=== PATIENT | female | born 1945 | race Two or more races ===

== ENCOUNTER 2017-09-29 14:31 | Emergency (ER) | payer OTHER ==
[~2017-09-29] VITALS: Ht 152.4 cm; Wt 33.6 kg
== END 2017-09-30 07:48 | disposition home or self-care (01) ==
LOC: ER 14:31
DX: D50.0 Iron deficiency anemia secondary to blood loss (chronic) (principal); R42 Dizziness and giddiness; K62.5 Hemorrhage of anus and rectum

== ENCOUNTER → 2017-10-05 | Emergency (ER) | payer OTHER ==
[~2017-10-05] VITALS: Ht 149.9 cm; Wt 33.6 kg
[~2017-10-05] MED LIST: FOSAMAX70 MG; IMODIUM A-D2 M2 PO; IRON325 MG PO; MEGACE ES625 MG/5 M PO; PEPCID40 MG PO; ZOFRAN4 MG PO
== END | disposition home or self-care (01) ==
LOC: ER 17:18
DX: R10.84 Generalized abdominal pain (principal); R11.2 Nausea with vomiting, unspecified

== ENCOUNTER 2018-04-11 06:20 | Day surgery (SDC) | payer OTHER | END 2018-04-11 11:30 | disposition home or self-care (01) | LOC: AMB-ENDOS 06:20 | DX: K55.21 Angiodysplasia of colon with hemorrhage (principal) ==

== ENCOUNTER 2018-05-10 16:55 | Emergency (ER) | payer OTHER ==
[~2018-05-10] VITALS: Ht 149.9 cm; Wt 34.0 kg
[2018-05-10] MEDS ORDERED: GAS RELIEF80 MG (17:20)
== END 2018-05-10 20:28 | disposition home or self-care (01) ==
LOC: ER 16:55
DX: D64.89 Other specified anemias (principal); R42 Dizziness and giddiness; R53.1 Weakness

== ENCOUNTER 2018-08-03 09:41 | Emergency (ER) | payer OTHER ==
[~2018-08-03] VITALS: Ht 152.4 cm; Wt 40.8 kg
[~2018-08-03 09:41] MED LIST changes: +GAS RELIEF80 MG
== END 2018-08-03 11:43 | disposition home or self-care (01) ==
LOC: ER 09:41
DX: S61.452A Open bite of left hand, initial encounter (principal); L03.114 Cellulitis of left upper limb; W54.0XXA Bitten by dog, initial encounter; Y93.89 Activity, other specified; Y92.018 Other place in single-family (private) house as the place of occurrence of the external cause; Y99.8 Other external cause status

== ENCOUNTER → 2018-10-11 | Emergency (ER) | payer OTHER ==
[~2018-10-11] VITALS: Ht 147.3 cm; Wt 33.6 kg
== END | disposition home or self-care (01) ==
LOC: ER 12:05
DX: K80.20 Calculus of gallbladder without cholecystitis without obstruction (principal); R10.32 Left lower quadrant pain

== ENCOUNTER → 2018-12-04 | Outpatient (CLI) | payer OTHER | END | disposition home or self-care (01) | LOC: NUCLEAR 08:58 | DX: K80.20 Calculus of gallbladder without cholecystitis without obstruction (principal); R63.4 Abnormal weight loss | CPT/HCPCS: 78227; A9537 ==

== ENCOUNTER 2019-03-01 13:49 | Emergency (ER) | payer OTHER ==
[~2019-03-01] VITALS: Ht 149.9 cm; Wt 37.2 kg
== END 2019-03-01 22:28 | disposition home or self-care (01) ==
LOC: ER 13:49
DX: R22.1 Localized swelling, mass and lump, neck (principal)

== ENCOUNTER 2019-03-24 10:24 | Outpatient (CLI) | payer OTHER | END 2019-03-24 10:28 | disposition home or self-care (01) | LOC: SONOGRAMA 10:24 | DX: D37.030 Neoplasm of uncertain behavior of the parotid salivary glands (principal) ==